=== PATIENT | male | born 1950 | race Caucasian/White ===

== ENCOUNTER 2017-12-31 21:46 | Emergency (ER) | payer MEDICARE ==
[2017-12-31 22:37] LABS: BASOPHILS 0.4 % (0-2); EOSINOPHILS 0.3 % (0-7); HEMATOCRIT 34.8 % (42.0-54.0); HEMOGLOBIN 11.5 g/dL (13.5-17.5); IMMATURE GRANULOCYTES 0.3 % (0-5); LYMPHOCYTES 11.5 % (15-50); MCH 30.5 pg (26.0-34.0); MCV 92.3 fL (80.0-100.0); MEAN PLATELET VOLUME 10.3 fL (7.4-10.4); MONOCYTES 7.1 % (2-11); NEUTROPHILS 80.4 % (40-80); PLATELET COUNT 318 10x3/uL (130-400); RBC 3.77 10x6/uL (4.20-6.10); RDW 17.6 % (11.5-14.5); WBC 13.5 10x3/uL (4.8-10.8)
[2017-12-31 22:52] LABS: ALBUMIN 3.1 g/dL (3.4-5.0); ANION GAP 11.7 mmol/L (8-16); BILIRUBIN - TOTAL 0.49 mg/dL (0.2-1.3); CALCIUM 8.5 mg/dL (8.5-10.1); CARBON DIOXIDE 26.3 mmol/L (21.0-32.0); CREATININE - SERUM 1.2 mg/dL (0.6-1.3); PROTEIN - SERUM 7.8 g/dL (6.4-8.2)
== END 2018-01-01 00:37 | disposition short-term general hospital (02) ==
LOC: D.ER 21:46
PROVIDERS: Emergency Medicine
DX: R42 Dizziness and giddiness (principal); R50.9 Fever, unspecified; J18.9 Pneumonia, unspecified organism; I50.9 Heart failure, unspecified; E11.9 Type 2 diabetes mellitus without complications; I10 Essential (primary) hypertension; E03.9 Hypothyroidism, unspecified; Z86.73 Personal history of transient ischemic attack (TIA), and cerebral infarction without residual deficits; I45.4 Nonspecific intraventricular block; F17.200 Nicotine dependence, unspecified, uncomplicated

== ENCOUNTER 2018-02-14 16:00 | Emergency (ER) | payer MEDICARE ==
[~2018-02-14] VITALS: Ht 182.9 cm; Wt 95.5 kg
[2018-02-14 16:06] VITALS: Ht 182.9 cm; Wt 95.5 kg
[2018-02-14] MEDS ORDERED: PROVENTIL HFA6.7 GM INH (16:08)
[2018-02-14] MEDS ORDERED: FERROUS SULFAT325 MG PO (16:08)
[2018-02-14] MEDS ORDERED: KLOR-CON 1010 MEQ PO (16:09)
[2018-02-14] MEDS ORDERED: CYCLOBENZAPRINE10 MG PO (16:09)
[2018-02-14] MEDS ORDERED: FUROSEMIDE20 MG PO (16:09)
[2018-02-14] MEDS ORDERED: LIPITOR80 MG PO (16:10)
[2018-02-14] MEDS ORDERED: MECLIZINE HCL25 MG PO (16:10)
[2018-02-14] MEDS ORDERED: CARDIZEM30 MG PO (16:10)
[2018-02-14] MEDS ORDERED: ULTRAM50 MG PO (16:11)
[2018-02-14] MEDS ORDERED: XANAX0.5 MG PO ×2 (16:11→20:05)
[2018-02-14] MEDS ORDERED: FLOMAX0.4 MG PO (16:12)
[2018-02-14] MEDS ORDERED: BAYER CHEWABLE81 MG PO (16:12)
[2018-02-14] MEDS ORDERED: OMEPRAZOLE20 M1 PO (16:12)
[2018-02-14] MEDS ORDERED: PLAVIX75 MG PO (16:13)
[2018-02-14] MEDS ORDERED: UNITHROID50 MCG PO (16:13)
[2018-02-14] MEDS ORDERED: LANTUS INSULIN10 ML SC (16:13)
[2018-02-14 16:41] LABS: BASOPHILS 0.5 % (0-2); EOSINOPHILS 0.5 % (0-7); HEMATOCRIT 38.9 % (42.0-54.0); HEMOGLOBIN 12.9 g/dL (13.5-17.5); IMMATURE GRANULOCYTES 0.3 % (0-5); LYMPHOCYTES 15.1 % (15-50); MCH 30.6 pg (26.0-34.0); MCHC 33.2 g/dL (31.0-37.0); MCV 92.2 fL (80.0-100.0); MEAN PLATELET VOLUME 10.3 fL (7.4-10.4); MONOCYTES 6.3 % (2-11); NEUTROPHILS 77.3 % (40-80); PLATELET COUNT 359 10x3/uL (130-400); RBC 4.22 10x6/uL (4.20-6.10); RDW 16.6 % (11.5-14.5); WBC 10.3 10x3/uL (4.8-10.8)
[2018-02-14 17:31] LABS: ALBUMIN 3.5 g/dL (3.4-5.0); ANION GAP 14.7 mmol/L (8-16); BILIRUBIN - TOTAL 0.34 mg/dL (0.2-1.3); CALCIUM 9.2 mg/dL (8.5-10.1); CARBON DIOXIDE 26.2 mmol/L (21.0-32.0); CREATININE - SERUM 1.4 mg/dL (0.6-1.3); POTASSIUM - SERUM 3.9 mmol/L (3.5-5.1); PROTEIN - SERUM 8.3 g/dL (6.4-8.2)
[2018-02-14 23:02] VITALS: BP 129/47
== END 2018-02-14 20:30 | disposition home or self-care (01) ==
LOC: D.ER 16:00
PROVIDERS: Family Medicine
DX: R56.9 Unspecified convulsions (principal); F19.939 Other psychoactive substance use, unspecified with withdrawal, unspecified; R51 Headache; F17.200 Nicotine dependence, unspecified, uncomplicated

== ENCOUNTER 2018-03-05 03:12 | Emergency (ER) | payer MEDICARE ==
[~2018-03-05] VITALS: Ht 182.9 cm; Wt 86.2 kg
[~2018-03-05 03:12] MED LIST: BAYER CHEWABLE81 MG PO; CARDIZEM30 MG PO; CYCLOBENZAPRINE10 MG PO; FERROUS SULFAT325 MG PO; FLOMAX0.4 MG PO; FUROSEMIDE20 MG PO; KLOR-CON 1010 MEQ PO; LANTUS INSULIN10 ML SC; LIPITOR80 MG PO; MECLIZINE HCL25 MG PO; OMEPRAZOLE20 M1 PO; PLAVIX75 MG PO; PROVENTIL HFA6.7 GM INH; ULTRAM50 MG PO; UNITHROID50 MCG PO; XANAX0.5 MG PO
[2018-03-05 03:14] VITALS: Ht 182.9 cm; Wt 86.2 kg
[2018-03-05] MEDS ORDERED: XANAX1 MG PO (03:29)
[2018-03-05 08:17] VITALS: BP 116/71
== END 2018-03-05 08:15 | disposition home or self-care (01) ==
LOC: D.ER 03:12
DX: F41.9 Anxiety disorder, unspecified (principal)

== ENCOUNTER 2018-03-12 15:41 | Emergency (ER) | payer OTHER ==
[~2018-03-12] VITALS: Ht 182.9 cm; Wt 90.0 kg
[~2018-03-12 15:41] MED LIST changes: +XANAX1 MG PO
[2018-03-12 15:54] VITALS: Ht 182.9 cm; Wt 90.0 kg
[2018-03-12 16:09] LABS: BASOPHILS 0.5 % (0-2); EOSINOPHILS 1.7 % (0-7); HEMATOCRIT 35.7 % (42.0-54.0); HEMOGLOBIN 11.7 g/dL (13.5-17.5); IMMATURE GRANULOCYTES 0.3 % (0-5); LYMPHOCYTES 17.1 % (15-50); MCH 29.9 pg (26.0-34.0); MCHC 32.8 g/dL (31.0-37.0); MCV 91.3 fL (80.0-100.0); MEAN PLATELET VOLUME 10.1 fL (7.4-10.4); MONOCYTES 7.7 % (2-11); NEUTROPHILS 72.7 % (40-80); PLATELET COUNT 304 10x3/uL (130-400); RBC 3.91 10x6/uL (4.20-6.10); RDW 16.3 % (11.5-14.5); WBC 13.9 10x3/uL (4.8-10.8)
[2018-03-12] MEDS ORDERED: BUPROPION HCL75 MG PO (16:11)
[2018-03-12 16:29] LABS: APTT 25.8 SECONDS (22.8-39.4); INR 1.1 (0.85-1.17); PROTIME 13.8 SECONDS (11.6-15.0)
[2018-03-12 16:33] LABS: ALBUMIN 3.1 g/dL (3.4-5.0); ALKALINE PHOSPHATASE 97 U/L (46-116); ALT (SGPT) 26 U/L (10-68); BILIRUBIN - TOTAL 0.27 mg/dL (0.2-1.3); CALC OSMOLALITY 280 mosm/kg (275-300); CALCIUM 8.3 mg/dL (8.5-10.1); CARBON DIOXIDE 30.1 mmol/L (21.0-32.0); CHLORIDE - SERUM 100 mmol/L (98-107); CREATININE - SERUM 1.2 mg/dL (0.6-1.3); GLUCOSE 196 mg/dL (74-106); PROTEIN - SERUM 7.3 g/dL (6.4-8.2); SODIUM 138 mmol/L (136-145); UREA NITROGEN 13 mg/dL (7-18); eGFR NON AFRICAN AMERICAN 64 mL/min (90-120)
[2018-03-12 16:40] LABS: LIPASE 64 U/L (73-393); PRO BNP 656 pg/mL (0-125); TROPONIN-I < 0.017 ng/mL (0.000-0.060)
[2018-03-12 19:08] VITALS: BP 100/62
== END 2018-03-12 20:04 | disposition short-term general hospital (02) ==
LOC: D.ER 15:41
PROVIDERS: Family Medicine
DX: R55 Syncope and collapse (principal); Z86.73 Personal history of transient ischemic attack (TIA), and cerebral infarction without residual deficits; E11.9 Type 2 diabetes mellitus without complications; I25.10 Atherosclerotic heart disease of native coronary artery without angina pectoris